=== PATIENT | female | born 1985 | race Asian ===

== ENCOUNTER 2017-01-27 12:15 | Emergency (ER) | payer BC ==
[~2017-01-27] VITALS: Ht 180.3 cm; Wt 128.8 kg
[2017-01-27 12:31] VITALS: BP 155/82; TEMP 98.6
== END 2017-01-27 16:42 | disposition home or self-care (01) ==
LOC: ED 12:15
DX: B34.9 Viral infection, unspecified (principal); M79.1 Myalgia
CPT/HCPCS: 87804; 99282

== ENCOUNTER 2019-07-24 19:19 | Emergency (ER) | payer OTHER ==
[~2019-07-24] VITALS: Ht 180.3 cm; Wt 134.3 kg
[2019-07-24 21:00] LABS: PLATELET COUNT 371 K/uL (152-353)
[2019-07-24 21:16] LABS: POTASSIUM 4.6 mmol/L (3.6-5.2)
[2019-07-24 23:35] VITALS: BP 112/69; TEMP 97.7
== END 2019-07-24 23:35 | disposition home or self-care (01) ==
LOC: ED 19:19
PROVIDERS: Student in an Organized Health Care Education/Training Program
DX: K57.32 Diverticulitis of large intestine without perforation or abscess without bleeding (principal)
CPT/HCPCS: 36415; 80053; 81000; 83690; 83735; 85027; 96360; 96375; 99284; J1885; J2405; Q9963

== ENCOUNTER 2019-12-18 09:41 | Outpatient (CLI) | payer OTHER | END 2019-12-18 20:11 | disposition home or self-care (01) | LOC: MRI 09:41 | DX: M54.14 Radiculopathy, thoracic region (principal); M54.17 Radiculopathy, lumbosacral region ==

== ENCOUNTER 2020-01-14 10:18 | Emergency (ER) | payer OTHER ==
[~2020-01-14] VITALS: Ht 180.3 cm; Wt 136.1 kg
[2020-01-14 10:59] LABS: PLATELET COUNT 318 K/uL (152-353)
[2020-01-14 11:05] LABS: POTASSIUM 3.7 mmol/L (3.6-5.2)
[2020-01-14 12:45] VITALS: BP 111/59; TEMP 97.3
== END 2020-01-14 12:49 | disposition home or self-care (01) ==
LOC: ED 10:18
PROVIDERS: Family Medicine
DX: N39.0 Urinary tract infection, site not specified (principal); R10.30 Lower abdominal pain, unspecified; R11.2 Nausea with vomiting, unspecified
CPT/HCPCS: 36415; 80053; 81000; 85027; 96374; 99284; J1885

== ENCOUNTER 2020-05-10 17:48 | Emergency (ER) | payer OTHER ==
[~2020-05-10] VITALS: Ht 180.3 cm; Wt 131.5 kg
[2020-05-10 17:52] VITALS: BP 174/101; TEMP 98.9
== END 2020-05-10 19:53 | disposition home or self-care (01) ==
LOC: ED 17:48
DX: M51.26 Other intervertebral disc displacement, lumbar region (principal); M51.36 Other intervertebral disc degeneration, lumbar region
CPT/HCPCS: 96372; 99282; J1100; J1885

== ENCOUNTER 2020-05-28 08:36 | Day surgery (SDC) | payer OTHER ==
[~2020-05-28] VITALS: Ht 30.5 cm; Wt 0.5 kg
== END 2020-05-28 10:40 | disposition home or self-care (01) ==
LOC: OR 08:36
PROC: 3E0T3BZ Introduction of Anesthetic Agent into Peripheral Nerves and Plexi, Percutaneous Approach (ICD-10-PCS; principal; 2020-05-28)
PROC: 3E0T33Z Introduction of Anti-inflammatory into Peripheral Nerves and Plexi, Percutaneous Approach (ICD-10-PCS; 2020-05-28)
DX: M47.817 Spondylosis without myelopathy or radiculopathy, lumbosacral region (principal)
CPT/HCPCS: J1100; J2001

== ENCOUNTER 2020-06-11 07:58 | Day surgery (SDC) | payer OTHER ==
[~2020-06-11] VITALS: Ht 30.5 cm; Wt 0.5 kg
== END 2020-06-11 10:39 | disposition home or self-care (01) ==
LOC: OR 07:58
PROC: 3E0T3BZ Introduction of Anesthetic Agent into Peripheral Nerves and Plexi, Percutaneous Approach (ICD-10-PCS; principal; 2020-06-11)
PROC: 3E0T33Z Introduction of Anti-inflammatory into Peripheral Nerves and Plexi, Percutaneous Approach (ICD-10-PCS; 2020-06-11)
DX: M47.817 Spondylosis without myelopathy or radiculopathy, lumbosacral region (principal)
CPT/HCPCS: J1100; J2001

== ENCOUNTER 2021-01-01 13:39 | Outpatient (CLI) | payer OTHER ==
[2021-01-01 14:18] LABS: POTASSIUM 3.7 mmol/L (3.6-5.2)
== END 2021-01-01 21:57 | disposition home or self-care (01) ==
LOC: LABW 13:39
PROVIDERS: ATTEND Nurse Practitioner Family
DX: R10.33 Periumbilical pain (principal); K52.9 Noninfective gastroenteritis and colitis, unspecified
CPT/HCPCS: 80053; 82150; 83630; 83690; 87015; 87045; 87324; 87328; 87329; 87449; 87899; Q9963

== ENCOUNTER 2021-05-06 04:58 | Emergency (ER) | payer OTHER ==
[~2021-05-06] VITALS: Ht 180.3 cm; Wt 135.2 kg
[2021-05-06 05:02] VITALS: TEMP 99.5
[2021-05-06 05:38] LABS: PLATELET COUNT 336 K/uL (152-353)
[2021-05-06 05:46] LABS: POTASSIUM 4.3 mmol/L (3.6-5.2)
[2021-05-06 08:30] VITALS: BP 152/83
== END 2021-05-06 08:40 | disposition short-term general hospital (02) ==
LOC: ED 04:58
PROVIDERS: Emergency Medicine
DX: K57.80 Diverticulitis of intestine, part unspecified, with perforation and abscess without bleeding (principal); Z11.52 Encounter for screening for COVID-19
CPT/HCPCS: 36415; 80053; 80307; 81000; 83605; 85027; 87635; 96365; 96375; 96376; 99284; J0696; J2175; J2405; Q9963; U0003

== ENCOUNTER 2021-05-21 20:39 | Outpatient (CLI) | payer OTHER | END 2021-05-21 23:59 | disposition home or self-care (01) | LOC: CT 20:39 | PROVIDERS: ATTEND Nurse Practitioner Family | DX: K57.32 Diverticulitis of large intestine without perforation or abscess without bleeding (principal) | CPT/HCPCS: Q9963 ==

== ENCOUNTER 2021-08-08 15:20 | Outpatient (CLI) | payer OTHER | END 2021-08-08 19:06 | disposition home or self-care (01) | LOC: CT 15:20 | PROVIDERS: ATTEND Nurse Practitioner Family | DX: K57.32 Diverticulitis of large intestine without perforation or abscess without bleeding (principal) | CPT/HCPCS: Q9963 ==

== ENCOUNTER 2021-09-26 10:26 | Outpatient (CLI) | payer OTHER | END 2021-09-26 21:02 | disposition home or self-care (01) | LOC: RAD 10:26 | PROVIDERS: ATTEND Family Medicine | DX: J40 Bronchitis, not specified as acute or chronic (principal) ==

== ENCOUNTER 2021-12-17 13:31 | Outpatient (CLI) | payer OTHER ==
[~2021-12-17] VITALS: Ht 180.3 cm; Wt 131.5 kg
== END 2021-12-17 19:04 | disposition home or self-care (01) ==
LOC: INF 13:31
PROVIDERS: ATTEND Nurse Practitioner Primary Care
DX: U07.1 COVID-19 (principal); Z23 Encounter for immunization
CPT/HCPCS: 96365; M0244

== ENCOUNTER 2022-02-11 10:37 | Outpatient (CLI) | payer OTHER | END 2022-02-11 19:02 | disposition home or self-care (01) | LOC: LABW 10:37 | PROVIDERS: ATTEND Nurse Practitioner Primary Care | DX: J02.9 Acute pharyngitis, unspecified (principal) | CPT/HCPCS: 87651 ==

== ENCOUNTER 2023-04-26 08:33 | Emergency (ER) | payer BC, OTHER ==
[~2023-04-26] VITALS: Ht 180.3 cm; Wt 125.2 kg
[2023-04-26 09:26] LABS: PLATELET COUNT 339 K/uL (152-353)
[2023-04-26 09:34] LABS: POTASSIUM 3.9 mmol/L (3.6-5.2)
[2023-04-26 09:45] LABS: PARTIAL THROMBOPLASTIN TIME 29.3 SECONDS (23.9-36.7)
[2023-04-26 11:55] VITALS: BP 138/85; TEMP 98.8
== END 2023-04-26 12:00 | disposition home or self-care (01) ==
LOC: ED 08:33
PROVIDERS: Emergency Medicine
DX: S46.911A Strain of unspecified muscle, fascia and tendon at shoulder and upper arm level, right arm, initial encounter (principal); X58.XXXA Exposure to other specified factors, initial encounter; E66.01 Morbid (severe) obesity due to excess calories; F17.290 Nicotine dependence, other tobacco product, uncomplicated; M79.89 Other specified soft tissue disorders
CPT/HCPCS: 80053; 85027; 85379; 85610; 85730; 86140; 99283

== ENCOUNTER 2023-09-13 17:32 | Outpatient (CLI) | payer BC, OTHER | END 2023-09-13 19:19 | disposition home or self-care (01) | LOC: CT 17:32 | PROVIDERS: ATTEND Family Medicine | DX: S30.1XXD Contusion of abdominal wall, subsequent encounter (principal); Y92.89 Other specified places as the place of occurrence of the external cause | CPT/HCPCS: Q9963 ==

== ENCOUNTER 2023-09-20 09:24 | Outpatient (CLI) | payer BC, OTHER ==
[2023-09-20 10:26] LABS: PLATELET COUNT 436 K/uL (152-353)
[2023-09-20 10:46] LABS: POTASSIUM 3.3 mmol/L (3.6-5.2)
== END 2023-09-20 18:52 | disposition home or self-care (01) ==
LOC: LABW 09:24
PROVIDERS: ATTEND Nurse Practitioner Family
DX: S30.1XXD Contusion of abdominal wall, subsequent encounter (principal); Y92.89 Other specified places as the place of occurrence of the external cause
CPT/HCPCS: 36415; 80048; 85027